=== PATIENT | female | born 1970 | race African-American/Black ===

== ENCOUNTER → 2019-08-08 12:33 | Outpatient (CLI) | payer BC, SELFPAY ==
--- NOTE | ~2019-08-08 | MM_ITS ---
EXAMINATION: MM screening [place] BI w jael HISTORY: Screening mammogram TECHNIQUE: Craniocaudal and mediolateral oblique 3-D tomosynthesis images were obtained and synthetic 2-D images were generated. CAD analysis was submitted and interpreted. COMPARISON: Comparison to multiple prior studies sequentially, with oldest reviewed study dated 09/15. BREAST PARENCHYMAL COMPOSITION: The breasts are heterogeneously dense, which may obscure small masses . FINDINGS: There is no evidence of suspicious mass, calcification, or architectural distortion to sugg est malignancy in either breast. There has been no suspicious interval change. IMPRESSION: 1. No mammographic evidence of malignancy. 2. Recommend routine screening mammography in one year. BI-RADS Category 1: Negative Reviewed, dictated and finalized at location A.
== END ==
PROVIDERS: PCP Family Medicine; Visit Provider Obstetrics & Gynecology
DX: Z12.31 Encounter for screening mammogram for malignant neoplasm of breast (principal)
CPT/HCPCS: 77063; 77067

== ENCOUNTER 2021-05-12 16:02 | Outpatient (CLI) | payer BC, SELFPAY ==
--- NOTE | ~2021-05-12 | MM_ITS ---
EXAMINATION: MM screening [place] BI w jael HISTORY: Screening TECHNIQUE: Craniocaudal and mediolateral oblique 3-D tomosynthesis images were obtained and synthetic 2-D images were generated. CAD analysis was submitted and interpreted. COMPARISON: Comparison to multiple prior studies sequentially, with oldest reviewed study dated 06/2012. BREAST PARENCHYMAL COMPOSITION: The breasts are heterogeneously dense, which may obscure small masses . FINDINGS: There are developing bilateral asymmetries in the lower inner quadrant of the right breast and upper central aspect of the left breast. There is a developing cluster of calcifications in the l ower inner quadrant of the right breast. IMPRESSION: 1. Developing bilateral breast asymmetries and right breast calcifications. 2. Additional mammographic views and possible breast ultrasound are recommended. BI-RADS Category 0: Incomplete: Needs additional imaging evaluation. Reviewed, dictated and finalized at location A. IMPRESSION: 1. Developing bilateral breast asymmetries and right breast calcifications. 2. Additional mammographic views and possible breast ultrasound are recommended . BI-RADS Category 0: Incomplete: Needs additional imaging evaluation.
== END 2021-05-12 16:03 | disposition home or self-care (01) ==
PROVIDERS: PCP Family Medicine; Referring Provider Obstetrics & Gynecology; Visit Provider Family Medicine
DX: Z12.31 Encounter for screening mammogram for malignant neoplasm of breast (principal); R92.8 Other abnormal and inconclusive findings on diagnostic imaging of breast
CPT/HCPCS: 77063; 77067

== ENCOUNTER 2021-05-31 13:44 | Outpatient (CLI) | payer BC, SELFPAY ==
--- NOTE | ~2021-05-31 | MMUS_ITS ---
EXAMINATION: MM diagnostic [place] BI w jael, US breast BI complete HISTORY: Follow-up bilateral breast asymmetries TECHNIQUE: Additional 3-D tomosynthesis images of the breasts were performed and synthetic 2-D images were generated. CAD analysis was submitted and interpreted. High resolution bilateral complete breas t ultrasound was performed. COMPARISON: Comparison to multiple prior studies sequentially, with oldest reviewed study dated 07/18. BREAST PARENCHYMAL COMPOSITION: The breasts are heterogenously dense, which may obscure small masses FINDINGS: MAMMOGRAPHIC FINDINGS: There are no suspicious masses, calcifications or architectural distortion in either breast to sugges t malignancy. ULTRASOUND: Complete bilateral US of all 4 quadrants of the breasts and retroareolar region was reviewed. Right breast ultrasound: At 3:00, there is a 3 mm cyst. At 4:00, 9 cm from the nipple, there is a 5 m m oval hypoechoic mass with internal echoes, no posterior features, parallel orientation and no inter nal vascularity, likely benign. Left breast ultrasound:3 cm from the nipple there is a tubular structure with low level internal echo es, likely a dilated duct containing debris. No internal vascularity or posterior shadowing. At 3:00, 2 cm from the nipple there is a 6 mm cyst. IMPRESSION: 1. Probable benign bilateral breast masses. 2. Recommend 6 month follow-up limited bilateral breast ultrasound BI-RADS category 3, probably benign findings. Reviewed, dictated and finalized at location A. IMPRESSION: 1. Probable benign bilateral breast masses. 2. Recommend 6 month follow-up limited bilateral breast ultrasound BI-RADS category 3, probably benign findings.
== END 2021-05-31 13:45 | disposition home or self-care (01) ==
PROVIDERS: PCP Family Medicine; Visit Provider Nurse Practitioner Adult Health
DX: R92.1 Mammographic calcification found on diagnostic imaging of breast (principal); R92.8 Other abnormal and inconclusive findings on diagnostic imaging of breast
CPT/HCPCS: 76641; 77062; 77066; G0279

== ENCOUNTER 2022-01-12 13:55 | Outpatient (CLI) | payer BC, SELFPAY ==
--- NOTE | ~2022-01-12 | US_ITS ---
EXAMINATION: US breast BI limited HISTORY: Six-month follow-up for probably benign bilateral breast masses TECHNIQUE: Limited bilateral breast ultrasound is performed. FINDINGS: Right breast: There is a stable 4 mm x 3 mm oval, circumscribed, parallel, hypoechoic mass with no po sterior features or internal vascularity at the 4:00 location 7 cm from the nipple. There is a stable 2 mm cyst at 3:00 location 3 cm from the nipple. Left breast: A duct with a small amount of debris is again noted at the 12:00 location near the nippl e. IMPRESSION: Stable, probably benign sonographic findings of the breasts as described above. Follow-up bilateral b reast ultrasound in six months is recommended. Note, patient will also be due for screening mammography at that time. BI-RADS category 3, probably benign findings. 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 Follow-up bilateral breast ultrasound in six months is recommended. Note, patient will also be due for screening mammography at that time. BI-RADS category 3, probably benign findings.
== END 2022-01-12 13:56 | disposition home or self-care (01) ==
PROVIDERS: PCP Family Medicine; Visit Provider Nurse Practitioner Adult Health
DX: R92.8 Other abnormal and inconclusive findings on diagnostic imaging of breast (principal)
CPT/HCPCS: 76642

== ENCOUNTER 2022-11-21 14:37 | Outpatient (CLI) | payer BC, SELFPAY ==
--- NOTE | ~2022-11-21 | MM_ITS ---
EXAMINATION: MM screening [place] BI w jael HISTORY: Screening TECHNIQUE: Craniocaudal and mediolateral oblique 3-D tomosynthesis images were obtained and synthetic 2-D images were generated. CAD analysis was submitted and interpreted. COMPARISON: Comparison to multiple prior studies sequentially, with oldest reviewed study dated 02/2015. BREAST PARENCHYMAL COMPOSITION: Breast composed of scattered areas of fibroglandular density FINDINGS: There are developing asymmetries in the right breast. The left breast is stable without laura dence for malignancy. IMPRESSION: 1. Developing right breast asymmetries. 2. Additional mammographic views and possible breast ultrasound are recommended. BI-RADS Category 0: Incomplete: Needs additional imaging evaluation. Reviewed, dictated and finalized at location A. IMPRESSION: 1. Developing right breast asymmetries. 2. Additional mammographic views and possible breast ultrasound are recommended . BI-RADS Category 0: Incomplete: Needs additional imaging evaluation.
== END 2022-11-21 14:38 | disposition home or self-care (01) ==
LOC: ANHIMG 14:41
PROVIDERS: PCP Family Medicine; Visit Provider Nurse Practitioner Adult Health
DX: Z12.31 Encounter for screening mammogram for malignant neoplasm of breast (principal); R92.8 Other abnormal and inconclusive findings on diagnostic imaging of breast
CPT/HCPCS: 77063; 77067

== ENCOUNTER 2022-12-14 11:39 | Outpatient (CLI) | payer BC, SELFPAY ==
--- NOTE | ~2022-12-14 | MMUS_ITS ---
EXAMINATION: MM diagnostic [place] RT w jael, US breast RT complete HISTORY: Follow-up right breast asymmetries TECHNIQUE: Additional 3-D tomosynthesis images of the right breast were performed and synthetic 2-D i mages were generated. CAD analysis was submitted and interpreted. High resolution complete right sasha st ultrasound was performed. COMPARISON: 11/21/2022 BREAST PARENCHYMAL COMPOSITION: The breasts are heterogeneously dense, which may obscure small masses FINDINGS: MAMMOGRAPHIC FINDINGS: There are no suspicious masses, calcifications or architectural distortion in the right breast to sug gest malignancy. ULTRASOUND: Complete US of all 4 quadrants of the right breast and retroareolar region was reviewed. At 3:00,, 2 cm from the nipple there is a 4 mm cyst. At 9:00, 4 cm from the nipple, there is a hypoechoic 6 mm ma ss without posterior features or internal vascularity which is wider than tall. IMPRESSION: 1. Probable benign right breast mass at 9:00, 4 cm from the nipple. 2. Recommend 6 month follow-up Limited right breast ultrasound BI-RADS category 3, probably benign findings. Reviewed, dictated and finalized at location A. 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 Probable benign right breast mass at 9:00, 4 cm from the nipple. 2. Recommend 6 month follow-up Limited right breast ultrasound BI-RADS category 3, probably benign findings.
== END 2022-12-14 11:40 | disposition home or self-care (01) ==
LOC: ANHIMG 11:43
PROVIDERS: PCP Family Medicine; Visit Provider Nurse Practitioner Adult Health
DX: R92.8 Other abnormal and inconclusive findings on diagnostic imaging of breast (principal)
CPT/HCPCS: 76641; 77061; 77065; G0279

== ENCOUNTER 2023-04-28 10:17 | Outpatient (CLI) | payer OTHER, SELFPAY ==
--- NOTE | ~2023-04-28 | US_ITS ---
Pelvic ultrasound. Clinical History: Hypertrophy of uterus Technique: Realtime transabdominal and transvaginal scanning of the pelvis was performed. Color flow Doppler and Doppler spectral analysis were performed. Findings: The uterus is anteverted, and measures 12.7 x 6.2 x 6.1 cm. The endometrial stripe has a t hickness of 4 mm. IUD in satisfactory position. Posterior wall fibroid measures 3.8 cm in diameter. A nterior wall fibroid measures 2.9 cm in diameter.. The right ovary measures 2.0 x 1.4 x 2.4 cm. No significant right ovarian or adnexal mass is seen. The left ovary measures 2.4 x 1.1 x 2.6 cm. No significant left ovarian or adnexal mass is seen. There is no evidence of free fluid in the cul de sac. Impression: Uterine fibroids, as above. IUD in place. Reviewed, dictated and finalized at location . Impression: Uterine fibroids, as above. IUD in place.
== END 2023-04-28 10:18 ==
PROVIDERS: PCP Nurse Practitioner; Visit Provider Nurse Practitioner
DX: T83.32XA Displacement of intrauterine contraceptive device, initial encounter (principal); N85.2 Hypertrophy of uterus; D25.9 Leiomyoma of uterus, unspecified
CPT/HCPCS: 76856

== ENCOUNTER 2023-12-06 07:47 | Outpatient (CLI) | payer OTHER, SELFPAY ==
--- NOTE | ~2023-12-06 | MM_ITS ---
EXAMINATION: MM screening [place] BI w jael HISTORY: Screening mammogram, family history of breast cancer in her sister. TECHNIQUE: Craniocaudal and mediolateral oblique 3-D tomosynthesis images were obtained and synthetic 2-D images were generated. CAD analysis was submitted and interpreted. COMPARISON: 11/21/2022, 05/12/2021, 08/08/2019 BREAST PARENCHYMAL COMPOSITION:Dense: The breasts are heterogeneously dense, which may obscure small masses. FINDINGS: No suspicious mass, calcification, or architectural distortion are identified in either carlos ast to suggest malignancy. There has been no suspicious interval change. IMPRESSION: No mammographic evidence of malignancy. Recommend routine screening mammography in one year. BI-RADS Category 1: Negative Reviewed, dictated and finalized at location .
== END 2023-12-06 07:48 | disposition home or self-care (01) ==
LOC: ANHIMG 07:49
PROVIDERS: PCP Nurse Practitioner; Visit Provider Family Medicine
DX: Z12.31 Encounter for screening mammogram for malignant neoplasm of breast (principal)
CPT/HCPCS: 77063; 77067